=== PATIENT | male | born 1955 | race Two or more races ===

== ENCOUNTER 2016-10-29 00:43 | Emergency (ER) | payer OTHER ==
[~2016-10-29] VITALS: Ht 172.7 cm; Wt 88.5 kg
[2016-10-29 01:00] VITALS: BP 173/107
[2016-10-29] MEDS ORDERED: HYDROCODONE/APAP 10/325MG 1 EA TABLET ONE (01:20)
[2016-10-29] MEDS ORDERED: HYDROCODONE/APAP 10/325MG 1 EA TABLET PO ONE (01:30)
== END 2016-10-29 02:01 | disposition home or self-care (01) ==
LOC: ER 00:53
DX: K08.89 Other specified disorders of teeth and supporting structures (principal); I10 Essential (primary) hypertension; Z88.0 Allergy status to penicillin
CPT/HCPCS: 99283; A4606; Z7610